=== PATIENT | male | born 1955 | race African-American/Black ===

== ENCOUNTER 2016-03-08 18:56 | Emergency (ER) | payer OTHER ==
[~2016-03-08] VITALS: Ht 175.3 cm; Wt 72.6 kg
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
[2016-03-08 21:30] VITALS: BP 149/99
[2016-03-08] MEDS ORDERED: NAPROXEN 250 MG TABLET PO ONE (21:30)
[2016-03-08] MEDS ORDERED: CYCLOBENZAPRINE 10 MG TABLET. PO ONE (21:30)
[2016-03-08] MEDS ORDERED: NAPR250T2 PO (22:03)
[2016-03-08] MEDS ORDERED: CYCL10TA2 PO (22:03)
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
== END 2016-03-08 22:10 | disposition home or self-care (01) ==
LOC: ER 18:56
DX: R51 Headache (principal); M54.2 Cervicalgia; M54.5 Low back pain; V49.40XA Driver injured in collision with unspecified motor vehicles in traffic accident, initial encounter; Y93.I9 Activity, other involving external motion; Y92.410 Unspecified street and highway as the place of occurrence of the external cause; Y99.8 Other external cause status
CPT/HCPCS: 70450; 72100; 72125; 73030; 99284-25